=== PATIENT | female | born 1990 | race Caucasian/White ===

== ENCOUNTER 2017-02-28 10:33 | Emergency (ER) | payer BC ==
[2017-02-28 10:46] VITALS: BP 124/79
--- NOTE | 2017-02-28 11:10 | UC ---
Complaint Female HPI - HPI Summary HPI Summary: Pt presents with request for STD screening. Pt sates that she is in a new relationship and would like to have STD testing. Denies any /GYNsymptoms - History Of Current Complaint Chief Complaint: [facility]CGU Stated Complaint: PERSONAL Time Seen by Provider: 02/28/17 11:09 Hx Obtained From: Patient Hx Last Menstrual Period: 02/11/17 ?: No Severity Currently: None Associated Signs And Symptoms: Positive: Negative - Risk Factors Ectopic Risk Factor: Negative - Allergies/Home Medications Allergies/Adverse Reactions: Allergies Allergy/AdvReac Type Severity Reaction Status Date / Time Amoxicillin Allergy Intermediate Hives Verified 02/28/17 10:46 Home Medications: Home Medications Fexofenadine (NF) [Cielo 180 (NF)] 1 tab PO DAILY 02/28/17 [History Confirmed 02/28/17] Fluticasone NASAL * [Flonase *] 2 spray BOTH NARES DAILY 02/28/17 [History Confirmed 02/28/17] PMH/Surg Hx/FS Hx/Imm Hx Previously Healthy: Yes - Surgical History Surgical History: Yes Surgery Procedure, Year, and Place: cyst left wrist 2002 - Family History Known Family History: Positive: Cardiac Disease - Social History Alcohol Use: Rare Substance Use Type: None Smoking Status (MU): Never Smoked Tobacco - Immunization History Most Recent Influenza Vaccination: no Review of Systems Constitutional: Negative Skin: Negative Eyes: Negative ENT: Negative Respiratory: Negative Cardiovascular: Negative Gastrointestinal: Negative Genitourinary: Negative Motor: Negative Neurovascular: Negative Musculoskeletal: Negative Neurological: Negative Psychological: Negative All Other Systems Reviewed And Are Negative: Yes Physical Exam Triage Information Reviewed: Yes Appearance: Well-Appearing, Other: - Pt Declined Pelvic exam Vital Signs: Initial Vital Signs Temp 98.7 F 02/28/17 10:41 Pulse 78 02/28/17 10:41 Resp 14 02/28/17 10:41 BP 124/79 02/28/17 10:41 Pulse Ox 100 02/28/17 10:41 Eye Exam: Normal ENT Exam: Normal Neck exam: Normal Respiratory Exam: Normal Musculoskeletal Exam: Normal Neurological Exam: Normal Psychological Exam: Normal Skin Exam: Normal Complaint Female Dx - Differential Dx/Diagnosis Differential Diagnosis/HQI/PQRI: Sexually Transmitted Disease Provider Diagnoses: STD screening Discharge - Discharge Plan Condition: Stable Disposition: HOME Patient Education Materials: Safe Sex (ED), Sexually Transmitted Diseases (ED) Referrals: Park Sebastian MD [Primary Care Provider] - If Needed
[2017-03-01 11:13] LABS: Syphilis Index < 0.1 Index
[2017-03-03 12:16] LABS: Herpes Simplex Virus I IgG AB Negative (Negative); Herpes Simplex Virus II IgG AB Negative (Negative)
== END 2017-02-28 12:14 | disposition home or self-care (01) ==
LOC: UCCORT 10:33
DX: Z11.3 Encounter for screening for infections with a predominantly sexual mode of transmission (principal)
CPT/HCPCS: 36415; 86592; 86695; 86696; 86703; 87480; 87491; 87510; 87591; 87660; 99211; G0463